=== PATIENT | male | born 1945 | race Caucasian/White ===

== ENCOUNTER 2018-05-02 14:37 | Emergency (ER) | payer MEDICARE, OTHER ==
[2018-05-02 14:51] VITALS: BP 126/72; PULSE 74; TEMP 97.9; BMI 36.0
--- NOTE | 2018-05-02 16:32 | PDOC ---
History of Present Illness - General Chief Complaint: Injury Stated Complaint: FALL / COUGH Time Seen by Provider: 05/02/18 15:50 History Source: Patient, Family - History of Present Illness Pain Location: reports: face Method of Injury: Yes: fall Past History - Past Medical History Allergies/Adverse Reactions: Allergies Allergy/AdvReac Type Severity Reaction Status Date / Time No Known Allergies Allergy Verified 01/03/14 22:47 Home Medications: Ambulatory Orders Amlodipine Besylate [Norvasc -] 10 mg PO DAILY 01/03/14 Aspirin [ASA -] 81 mg PO DAILY 01/03/14 Hydrochlorothiazide [Hctz -] 12.5 mg PO DAILY 01/03/14 Simvastatin [Zocor -] 40 mg PO HS 01/03/14 Anemia: No Asthma: No Cancer: No Cardiac Disorders: No CVA: Yes COPD: No CHF: No Dementia: No Diabetes: No GI Disorders: No Disorders: No HTN: Yes Hypercholesterolemia: Yes Liver Disease: No Seizures: No Thyroid Disease: No - Surgical History Gastric Stapling: No Lung Surgery: No - Immunization History Immunization Up to Date: Yes - Suicide/Smoking/Psychosocial Hx Smoking History: Never smoked Have you smoked in the past 12 months: No Information on smoking cessation initiated: No Hx Alcohol Use: No Drug/Substance Use Hx: No Substance Use Type: None Review of Systems - Review of Systems Constitutional: No: Fever Respiratory: Yes: Cough. No: Shortness of Breath, Wheezing Cardiac (ROS): No: Chest Pain, Lightheadedness, Palpitations, Syncope Neurological: No: Headache, Weakness, Dizziness *Physical Exam - Vital Signs Last Vital Signs Temp Pulse Resp BP Pulse Ox 97.9 F 74 16 126/72 98 05/02/18 14:45 05/02/18 14:45 05/02/18 14:45 05/02/18 14:45 05/02/18 14:45 - Physical Exam General Appearance: Yes: Appropriately Dressed. No: Apparent Distress HEENT: positive: Normal Voice, Other (+subconj to medial canthus of R eye w/ facial brusing, no sig swelling, crepitus or step offs) Neck: positive: Supple Respiratory/Chest: positive: Lungs Clear, Normal Breath Sounds. negative: Respiratory Distress Cardiovascular: positive: Regular Rate, S1, S2 Extremity: positive: Normal Inspection, Normal Range of Motion, Other ( ambulating in ED). negative: Tender, Swelling Integumentary: positive: Dry, Warm Neurologic: positive: Fully Oriented, Alert, Normal Mood/Affect Moderate Sedation - Procedure Monitoring Vital Signs: Procedure Monitoring Vital Signs Temperature 97.9 F 05/02/18 14:45 Pulse Rate 74 05/02/18 14:45 Respiratory Rate 16 05/02/18 14:45 Blood Pressure 126/72 05/02/18 14:45 O2 Sat by Pulse Oximetry (%) 98 05/02/18 14:45 ED Treatment Course - RADIOLOGY Radiology Studies Ordered: Category Date Time Status FACIAL BONES CT W/O CONTRAST [CT] Stat CT Scan 05/02/18 16:[address] WITHOUT CONTRAST [CT] Stat CT Scan 05/02/18 16:15 Ordered CHEST PA & LAT [RAD] Stat Radiology 05/02/18 16:18 Ordered Medical Decision Making - Medical Decision Making 05/02/18 16:29 72-year-old male, history of HTN, on asa, currently on zpack for cough that has been present for 1 month, brought in by family for evaluation after fall. Patient states this a.m. while standing, he started coughing and lost his balance and fell forward striking head and face. No LOC, headache, dizziness, blurry vision, nausea or vomiting. No chest pain or dizziness prior to fall. Has been baseline since since family. Able to ambulate since fall See exam Facial injury s/p mechanical fall No LOC On asa No CP/dizziness prior to fall Neuro intact -CTH -CT facial bones -CXR given persistent cough 05/02/18 16:32 05/02/18 19:17 Signed out to JULIANNE Littlejohn pending CT read *DC/Admit/Observation/Transfer - Discharge Dispostion Condition at time of disposition: Stable - Referrals Referrals: Kailey Kellogg MD [Primary Care Provider] - - Patient Instructions - Post Discharge Activity
--- NOTE | 2018-05-02 20:15 | PDOC ---
*Physical Exam - Vital Signs Last Vital Signs Temp Pulse Resp BP Pulse Ox 97.9 F 74 16 126/72 98 05/02/18 14:45 05/02/18 14:45 05/02/18 14:45 05/02/18 14:45 05/02/18 14:45 - Physical Exam General Appearance: Yes: Appropriately Dressed. No: Apparent Distress HEENT: positive: Other (right subconjunctival hemorrhage. tenderness to b/l orbits. ) Neck: positive: Trachea midline Respiratory/Chest: positive: Chest Tender, Lungs Clear, Normal Breath Sounds. negative: Respiratory Distress, Accessory Muscle Use Cardiovascular: positive: Regular Rhythm, Regular Rate, S1, S2. 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 Briefly this is a 72-year-old male history of hypertension who woke up this morning began coughing losing his balance falling 40 striking his head and face on the floor. He denied loss of consciousness headache blurry vision nausea or vomiting. This full recollection of events immediately to prior to, during and after the fall. Been ambulatory since the fall. Chest x-rays read by Dr. Thomas: No significant interval change or acute lung disease present. CT of head and facial bones is pending Medical Decision Making - Medical Decision Making 05/02/18 20:01 A/P: CT of the brain without IV contrast reveals arachnoid cyst measuring 4.3 x 2.4 cm extending to the left sylvian fissure. Cannot rule out subdural hygromas without mass effect. It measures approximately 8 mm in width on the right and 7.5 mm on the left. Chronic lacunar infarct again seen in the left periventricular white matter and right paramedian aspect of the omer. Otherwise, no mass lesion, gross acute infarct or internal hemorrhage is identified. There is no shift of the midline structures. Visualized paranasal sinuses and mastoid air cells are well aerated. The calvarium is intact. CT of facial bones as read by Dr. Thomas: No gross fracture is identified. Mild right periorbital and preseptal soft tissue swelling is present mainly laterally. Both orbits appear intact. We'll TM joints appear intact. Small bilateral medial maxillary antrostomy are present. Very minimal mucosal thickening in the ethmoid air cells. 1.3 cm retention cyst versus polyp in the right maxillary antrum, inferiorly and minimal polypoid mucosal thickening seen on the left. This is been discussed with Dr. Moreno the attending ER physician as well as Dr. marrero of neurosurgery. Dr. marrero as reviewed the images and previous images and has determined that the arachnoid cyst and subdural hygromas or chronic abdomen present since 11/04/2004. No further intervention is needed I will discharge the patient home. I discussed the physical exam findings, ancillary test results and final diagnoses with the patient. I answered all of the patient's questions. The patient was satisfied with the care received and felt comfortable with the discharge plan and treatment plan. The patient will call their primary care physician within 24 hours to arrange follow-up and will return to the Emergency Department with any new, persistent or worsening symptoms. *DC/Admit/Observation/Transfer Diagnosis at time of Disposition: Facial pain, acute Closed head injury Qualifiers: Encounter type: initial encounter Qualified Code(s): S09.90XA - Unspecified injury of head, initial encounter Fall Qualifiers: Encounter type: initial encounter Qualified Code(s): W19.XXXA - Unspecified fall, initial encounter Subconjunctival hemorrhage Qualifiers: Laterality: right Qualified Code(s): H11.31 - Conjunctival hemorrhage, right eye - Discharge Dispostion Disposition: HOME Condition at time of disposition: Stable Decision to Admit order: No - Referrals Referrals: Kailey Kellogg MD [Primary Care Provider] - - Patient Instructions Printed Discharge Instructions: How to Prevent Falls, DI for Closed Head Injury Additional Instructions: You have been provided with a read of your CAT scan and x-ray results. Take Tylenol for Motrin for any fevers and/or pain. Follow chief digital media officer's instructions for appropriate dosage. Return to the emergency department for any worsening pain, dizziness, blurry vision, vomiting, or any other concerns. Thank you very much for choosing us to provide your emergent health care needs. - Post Discharge Activity
== END 2018-05-02 21:10 | disposition home or self-care (01) ==
LOC: JER 14:37
DX: S09.8XXA Other specified injuries of head, initial encounter (principal); H11.31 Conjunctival hemorrhage, right eye; R05 Cough; W18.39XA Other fall on same level, initial encounter; Y93.89 Activity, other specified; Y92.018 Other place in single-family (private) house as the place of occurrence of the external cause; Y99.8 Other external cause status; I10 Essential (primary) hypertension; E78.00 Pure hypercholesterolemia, unspecified; Z86.73 Personal history of transient ischemic attack (TIA), and cerebral infarction without residual deficits; Z79.82 Long term (current) use of aspirin
CPT/HCPCS: 70450-TC; 70486-TC; 71046-TC-FY; 99282-25

== ENCOUNTER 2021-07-30 04:30 | Day surgery (SDC) | payer MEDICARE, OTHER ==
[2021-07-28 09:04] VITALS: BMI 33.5
[2021-07-30 09:41] VITALS: TEMP 98
[2021-07-30 10:39] VITALS: BP 126/78; PULSE 70
== END 2021-07-30 10:30 | disposition home or self-care (01) ==
LOC: JASU-ENDO 04:30
PROVIDERS: ATTEND Internal Medicine Gastroenterology
PROC: 0DBP8ZX Excision of Rectum, Via Natural or Artificial Opening Endoscopic, Diagnostic (ICD-10-PCS; 2021-07-30)
PROC: 0DBK8ZX Excision of Ascending Colon, Via Natural or Artificial Opening Endoscopic, Diagnostic (ICD-10-PCS; principal; 2021-07-30 09:00)
DX: D12.2 Benign neoplasm of ascending colon (principal); D12.9 Benign neoplasm of anus and anal canal; K57.30 Diverticulosis of large intestine without perforation or abscess without bleeding; Z86.010 Personal history of colon polyps; I10 Essential (primary) hypertension
CPT/HCPCS: 88305-TC; 88342-TC